=== PATIENT | female | born 1955 | race Caucasian/White ===

== ENCOUNTER → 2017-07-11 | Outpatient (CLI) | payer OTHER ==
[~2017-07-11] MED LIST: ADJUSTABLE COMM1 MIS; ALIG4CAP PO; AMBI5TAB PO; ASPI81TA23 PO; AZEL1SPR2 EACH NARE; CALC1TAB12 PO; CYCL10TA PO; DAILTAB8 PO; FLUT1SPR5 EACH NARE; HYDR-3366 PO; HYDR-3533 PO; HYDR-3580 PO; RAISED TOILET S1 MI1; RALO60 PO; ROSU5 PO; VITA250T3 PO; WALKER WHEELS/F1 MIS; ZINC220C3 PO; ZINC50TA2 PO
[2017-07-11 12:20] LABS: AUTOMATED NEUTROPHIL # 3.4 TH/MM3 (1.8-7.7); BASOPHIL # 0.1 TH/MM3 (0-0.2); BASOPHIL % 1.1 % (0.0-2.0); EOSINOPHIL # 0.2 TH/MM3 (0-0.4); EOSINOPHIL % 3.6 % (0.0-4.0); HEMOGLOBIN 13.6 GM/DL (11.6-15.3); LYMPH % 22.8 % (9.0-44.0); LYMPHOCYTE # 1.3 TH/MM3 (1.0-4.8); MEAN CELL VOLUME 91.5 FL (80.0-100.0); MEAN CORPUSCULAR HEMOGLOBIN 31.1 PG (27.0-34.0); MEAN CORPUSCULAR HGB CONC 34.1 % (32.0-36.0); MEAN PLATELET VOLUME 8.3 FL (7.0-11.0); MONO % 11.8 % (0.0-8.0); MONOCYTE # 0.7 TH/MM3 (0-0.9); NEUT % 60.7 % (16.0-70.0); PLATELET COUNT 263 TH/MM3 (150-450); RED BLOOD COUNT 4.38 MIL/MM3 (4.00-5.30); RED CELL DISTRIBUTION WIDTH 13.5 % (11.6-17.2); WHITE BLOOD COUNT 5.6 TH/MM3 (4.0-11.0)
[2017-07-11 12:27] LABS: INTERNATIONAL NORMALIZED RATIO 1.1 RATIO; PROTHROMBIN TIME - PATIENT 11.6 SEC (9.8-11.6)
[2017-07-11 12:44] LABS: BACTERIA, URINE OCC /hpf; BILIRUBIN, URINE NEG (NEG); BLOOD, URINE NEG (NEG); CALCIUM OXALATE CRYSTALS,URINE OCC /hpf; GLUCOSE,URINE NEG (NEG); KETONE, URINE NEG (NEG); MUCUS URINE FEW /lpf (OCC); NITRITE,URINE NEG (NEG); SQUAMOUS EPITHELIAL CELL URINE 1 /hpf (0-5); URINE COLOR LIGHT-YELLOW (YELLW/STRAW); URINE LEUKOCYTE ESTERASE NEG (NEG)
[2017-07-11 12:46] LABS: ALBUMIN 3.8 GM/DL (3.4-5.0); ALT (GPT) 24 U/L (10-53); AST (GOT) 20 U/L (15-37); BICARBONATE 26.8 MEQ/L (21.0-32.0); BLOOD UREA NITROGEN 17 MG/DL (7-18); CALCIUM 9.4 MG/DL (8.5-10.1); CHLORIDE 104 MEQ/L (98-107); CREATININE 0.55 MG/DL (0.50-1.00); GLOMERULAR FILTRATION RATE 112 ML/MIN (>89); GLUCOSE,FASTING 87 MG/DL (74-99); SODIUM (NA) 141 MEQ/L (136-145)
[2017-07-11 12:49] LABS: ALKALINE PHOSPHATASE 66 U/L (45-117); TOTAL BILIRUBIN ADULT 0.4 MG/DL (0.2-1.0); TOTAL PROTEIN 7.4 GM/DL (6.4-8.2)
--- NOTE | 2017-07-11 13:23 | RADRPT ---
EXAM DATE/TIME: 07/11/2017 12:38 [facility] COMPARISON: No previous studies available for comparison. INDICATIONS : Evaluate for pneumonia, pneumothorax or communicable disease. Pre-op for a lumbar fusion on 8. MEDICAL HISTORY : None. SURGICAL HISTORY : None. ENCOUNTER: Initial ACUITY: 1 day PAIN SCORE: 0/10 LOCATION: Bilateral chest FINDINGS: PA and lateral views of the chest demonstrate the lungs to be symmetrically aerated without evidence of mass, infiltrate or effusion. The cardiomediastinal contours are unremarkable. Osseous structure s are intact. There is asymmetry of the breast shadows with notable surgical clips in the left axilla . CONCLUSION: No acute disease. There is mild scarring and/or atelectasis. Jeffrey Barroso MD on July 11, 2017 at 13:20 Board Certified Radiologist. This report was verified electronically.
--- NOTE | 2017-07-12 16:04 | EKG ---
Date Performed: 07/11/2017 Time Performed: 11:50:12 PTAGE: 62 years EKG: Sinus rhythm Right bundle branch block Low QRS voltages in precordial leads Abnormal ECG PREVIOUS TRACING : 09/22/2009 09.38 Since previous tracing, no significant change noted DOCTOR: Vincenzo Mcintosh Interpretating Date/Time 07/12/2017 16:02:56
== END ==
LOC: CPRE 11:26
PROVIDERS: ATTEND Neurological Surgery
DX: Z01.810 Encounter for preprocedural cardiovascular examination (principal); Z01.811 Encounter for preprocedural respiratory examination; Z01.812 Encounter for preprocedural laboratory examination; Z01.818 Encounter for other preprocedural examination; M43.18 Spondylolisthesis, sacral and sacrococcygeal region; Z79.01 Long term (current) use of anticoagulants; R94.31 Abnormal electrocardiogram [ECG] [EKG]
CPT/HCPCS: 36415; 71046; 80053; 81001; 85025; 85610; 85730; 87640; 87641; 93005

== ENCOUNTER 2017-07-16 05:47 | Inpatient (IN) | payer OTHER ==
--- NOTE | 2017-07-15 15:35 | MH ---
cc: ALYSE PAULINO M.D., ROHIT K. M.D. BHALANI, KIRIT DATE OF ADMISSION 07/16/2017 ADMITTING DIAGNOSIS Lumbar degenerative disc disease with spondylolisthesis. HISTORY OF PRESENT ILLNESS This is a 62-year-old female who presented to us for evaluation of left leg pain which started March 2016 without any particular inciting event. She states that she has had low back pain extending into the left posterior buttocks and thigh and calf into the heel. She has had several epidural steroid injections with Dr. Haley which did not help. She states that she has noticed weakness in the left leg and at times is dragging her left foot. She states that at times the left leg feels like it could give out on her. She has had physical therapy in the past which did not help. She has used a TENS unit. She states currently her back pain is present all the time, rates it as 5/10. She also has had massage which helps some. She has numbness in the left foot on the medial aspect and also the left lateral calf and anterior thigh. She states that she wakes up in bed with numbness and burning in the left leg. She denies any right lower extremity symptoms. She states that her left leg has progressively gotten worse and is now at a point where it is almost unbearable and she is having difficulty making it through her work day secondary to the pain. PAST MEDICAL HISTORY 1. Hyperlipidemia. 2. Lumpectomy in 2000 and 2001. 3. Carpal tunnel surgery, partial in 2007 and full in 2009. 4. Sinus surgery in 2011. MEDICATIONS Current medications: 1. Crestor 10 mg daily. 2. Ambien 5 mg daily. 3. Calcium 1000 mg daily. 4. Zinc 500 mg daily. 5. Vitamin-C 1000 mg daily. 6. Hydrocodone 5/325 daily. ALLERGIES She has no known drug allergies. FAMILY HISTORY Her father is at age 70 of pneumonia. Her mother is alive at age 84 with Parkinson's disease. She has a sister who is alive at [id number]. SOCIAL HISTORY She is a speech pathologist. She is . She does not have children. She does not smoke; has not smoked in the past. She drinks alcohol 0-2 drinks daily. REVIEW OF SYSTEMS CONSTITUTIONAL: She denies any fever or chills. EARS, NOSE, AND THROAT: No pharyngitis, exudates or bloody drainage from her nose. CARDIOVASCULAR: She denies any chest pain or palpitations. RESPIRATORY: No cough or shortness of breath. GENITOURINARY: No dysuria or hematuria. MUSCULOSKELETAL: Positive for low back pain and left leg pain. SKIN: No rashes or pruritus. NEUROLOGIC: No difficulty with speech or memory. GASTROINTESTINAL: No nausea, vomiting, abdominal pain. PSYCHIATRIC: No anxiety or depression symptoms. ENDOCRINE: No polyuria or polydipsia. HEMATOLOGIC: No bruising or bleeding tendencies. DATA REVIEW MRI of the lumbar spine from November 21, 2016 reveals moderate disc degeneration at the L4-L5 level with a grade I spondylolisthesis and facet arthropathy with disc protrusion leading to severe bilateral foraminal stenosis. She also has degenerative disc disease and disc protrusions and facet arthropathy at the L3-L4 and L5-S1 levels with overall mild stenosis. IMPRESSION A 62-year-old female with progressively worsening chronic low back pain for the past several years, although severe for the past year or so with associated left L5 and S1 radiculopathy and dorsiflexion weakness. She has failed conservative treatment measures and has severe L4-L5 disc degeneration and disc height collapse along with a grade I spondylolisthesis and associated facet hypertrophy and disc protrusion with significant foraminal stenosis. She also has lesser degree of degenerative changes at the L3-L4 and L5-S1 levels. The patient states that she is currently miserable with her level of discomfort. She cannot continue to live with her current level of pain and she is requesting that we proceed and she was therefore scheduled accordingly. PLAN We have discussed the procedure with the patient which would entail an L4-L5 transforaminal interbody fusion with cage and pedicle screw fixation. We have discussed the procedure as well as the risk, benefit, alternatives and recovery time in great detail with the patient and her . We have discussed the risks involved with surgery include but not limited to bleeding, infection, muscle weakness, voice hoarseness, difficulty swallowing, heart attack, stroke, blood clots, non-fusion, scar tissue formation, among others. We have discussed that the success rate is usually around 85% in general but no guarantees were given to the patient or her . There is also a possibility of progression of adjacent segment disc disease in the future requiring further surgery and she understands this. The patient understands that the goal of surgery is to prevent further decline in the strength in her leg and she will require eventually physical therapy to help strengthen the weakness in her leg. The patient is in agreement with the treatment plan and she was therefore scheduled accordingly. Dictated by: Gilberto Peterson PA-C MD RUCHI Norris/POLLY /3:01 PM /3:15 PM
[~2017-07-16] VITALS: Ht 162.6 cm; Wt 75.9 kg
[~2017-07-16 05:47] MED LIST changes: -ADJUSTABLE COMM1 MIS; -CYCL10TA PO; -HYDR-3366 PO; -HYDR-3533 PO; -HYDR-3580 PO; -RAISED TOILET S1 MI1; -WALKER WHEELS/F1 MIS; -ZINC220C3 PO
[2017-07-16] MEDS ORDERED: METOPROLOL TARTRATE 25 MG TAB PO PRN (06:15)
[2017-07-16] MEDS ORDERED: CHLORHEXIDINE GLUCONATE 2 % 1 PACK (2 CLOTHS) TOPICAL PRN (06:15)
[2017-07-16] MEDS ORDERED: VANCOMYCIN 1000 MG/NS 250 ML IV SCH ×2 (06:15)
[2017-07-16] MEDS ORDERED: SODIUM CHLOR 0.9% 1000 ML INJ 1,000 ML IV SCH (06:15)
[2017-07-16] MEDS ORDERED: SODIUM CHLORID 0.9% 500 ML IV PRN (06:15)
[2017-07-16] MEDS ORDERED: POVIDONE IODINE 5% (ANTISEPSIS KIT) 4 APPLICATIONS EACH NARE PRN (06:15)
[2017-07-16] MEDS ORDERED: LACTATED RINGER'S 1000 ML IV PRN (06:15)
[2017-07-16] MEDS ORDERED: HYDR-3580 PO (07:02)
[2017-07-16] MEDS ORDERED: VANCOMYCIN HCL 1000 MG VIAL ONE ×2 (08:36→08:37)
[2017-07-16] MEDS ORDERED: GELFOAM SIZE 100 ONE ×2 (08:36→10:47)
[2017-07-16] MEDS ORDERED: THROMBIN (TOPICAL) 5,000 UNIT VIAL ONE ×2 (08:36→10:46)
[2017-07-16] MEDS ORDERED: BUPIVACAINE/EPINEPHRINE 0.5% 50 ML VIAL ONE (08:36)
[2017-07-16] MEDS ORDERED: ACETAMINOPHEN 1000 MG/100 ML 100 ML IV ONE (09:29)
[2017-07-16] MEDS ORDERED: SUGAMMADEX SODIUM 200 MG/2 ML VIAL IV PUSH ONE (09:29)
[2017-07-16] MEDS ORDERED: HYDROmorphone HCL PF 2 MG/ML VIAL ONE (09:29)
[2017-07-16] MEDS ORDERED: NALOXONE HCL 0.4 MG/ML AMP ONE (09:30)
[2017-07-16] MEDS ORDERED: DO NOT ADM ANY ANTICOAGULANT DRUGS PRN (12:09)
[2017-07-16] MEDS ORDERED: *ONDANSETRON 4 MG VIAL PERIprocedural Use ONLY ONE (12:22)
[2017-07-16] MEDS ORDERED: MIDAZOLAM HCL 2 MG/2 ML VIAL ONE (12:25)
[2017-07-16] MEDS ORDERED: MENTHOL LOZENGE BUCCAL PRN (12:45)
[2017-07-16] MEDS ORDERED: SENNOSIDES 8.6 MG TAB PO PRN (12:45)
[2017-07-16] MEDS ORDERED: NALOXONE HCL 0.4 MG/ML AMP IV PUSH PRN (12:45)
[2017-07-16] MEDS ORDERED: SODIUM CHLORIDE 0.9% FLUSH 10 ML FLUSH IV FLUSH PRN (12:45)
[2017-07-16] MEDS ORDERED: ONDANSETRON HCL 4 MG/2 ML VIAL IV PUSH PRN (12:45)
[2017-07-16] MEDS ORDERED: ALUMINUM/MAGNESIUM/SIMETH 30 ML CUP PO PRN (12:45)
[2017-07-16] MEDS ORDERED: cloNIDine HCL 0.1 MG TAB PO PRN (12:45)
[2017-07-16] MEDS ORDERED: CYCLOBENZAPRINE HCL 10 MG TAB PO PRN (12:45)
[2017-07-16] MEDS ORDERED: MORPHINE SULFATE 30 MG/30 ML PCA IV SCH (12:45)
[2017-07-16] MEDS ORDERED: CALCIUM GLUCONATE INJ 1 GM in SODIUM CHLORIDE 0.9% INJ 100 ML IV PRN (12:45)
[2017-07-16] MEDS ORDERED: LACTULOSE SYRUP 20 GM/30 ML CUP PO PRN (12:45)
[2017-07-16] MEDS ORDERED: ACETAMINOPHEN 325 MG TAB PO PRN (12:45)
[2017-07-16] MEDS ORDERED: POTASSIUM CHLOR 20 MEQ PREMIX 100 ML IV PRN (12:45)
[2017-07-16] MEDS ORDERED: RESP: ALBUTEROL 2.5 MG/3 ML NEB (PRN) NEB (12:45)
[2017-07-16] MEDS ORDERED: MAGNESIUM SULFATE INJ 2 GM in SODIUM CHLORIDE 0.9% INJ 100 ML IV PRN (12:45)
[2017-07-16] MEDS ORDERED: BISACODYL 10 MG SUPP RECTAL PRN (12:45)
[2017-07-16] MEDS ORDERED: MAGNESIUM HYDROXIDE SUSP 30 ML CUP PO PRN (12:45)
[2017-07-16] MEDS ORDERED: PROMETHAZINE INJ 25 MG/ML VIAL IM PRN (12:45)
--- NOTE | 2017-07-16 12:48 | PD.OP ---
MD Gee Connelly MD Operative Report Date of Surgery: Jul 16, 2017 Preoperative Diagnosis: Intractable low back pain with radiculopathy; lumbar L4-5 spinal/foraminal stenosis with pars defect and degenerative disc disease with grade 1 spondylolisthesis along with facet and ligamentum flavum hypertrophy Postoperative Diagnosis: Same Procedure: Lumbar transforaminal L4-5 decompression with interbody fusion; L4-5 pedicle screw fixation; L4-5 interbody cage placement; microsurgical technique Anesthesia: Gen. endotracheal by Fabiano mustafa Surgeon: Zeb Ochoa M.D. [employer] [facility] Gunsmith(s): Elsa Ramon Operation and Findings: Following initiation of general endotracheal anesthesia, the patient had a Plaza catheter placed along with sequential compression devices. A gram of vancomycin was administered intravenously and she was turned in a prone position on a Garrett frame, on a Sami table, and all pressure points adequately padded. The lumbosacral region was then prepped with Chloraprep and sterilely draped with [place]oban along the usual sterile draping. A left paraspinal skin incision was then made extending from the L4-L5 level after infiltrating the skin with 0.5% Marcaine with epinephrine solution extending down through the fascia. The muscle fibers were split using avascular fatty plane and detached from the underlying facets, transverse process and lateral portion of lamina on the left side and a self-retaining retractor used for exposure. Intraoperative fluoroscopy was also used for level of confirmation along with microscope magnification for further dissection. There was significant facet and ligamentum flavum hypertrophy noted at the L4-5 levels along with the spondylolisthesis and pars defect. Left L4-5 facet was resected with a drill bit along with the lamina and there was severe foraminal and lateral recess stenosis from hypertrophied ligamentum flavum and facet which were decompressed. There was significant disc height collapse along with disc protrusion also leading to the foraminal stenosis. Epidural hemostasis was achieved with bipolar cautery and Gelfoam with thrombin. Subsequently entered into the disc space at the L4-5 level with a #15 blade and sofia were used for discectomy. I then placed PEEK cage packed with local autograft bone and more local autograft bone was packed adjacent to the cage in interspace for added interbody fusion. With placement of the cage, I was able to distract the interspace and opened up the foramen further bilaterally. A left lateral durotomy at the axilla of the thecal sac and nerve root was noted and this was repaired with a 5-0 Prolene in a watertight fashion and reinforced with compressed Gelfoam and DuraSeal along with an epidural fat pad. Subsequently in order to facilitate the fusion and provide stabilization, pedicle screw fixation was undertaken using [place] spine screws on entry point at the left L4 -5 levels at the junction of the transverse process and facet. Subsequently using AP and lateral fluoroscopy tap and screw placement. The screws were then connected with a bob and locked in place with caps. The construct appeared very secure at this point. The area was then copiously irrigated with Vancomycin solution and powder. The retractors were removed and the bipolar cautery used for hemostasis. The muscle fascia was then approximated using 2-0 Vicryl interrupted stitches and then 3-0 Vicryl subcuticular stitches also placed in interrupted fashion. The final skin closure was completed with Mastisol and Steri-Strips. A sterile dressing was then applied. The patient then turned in supine position, extubated and taken to recovery room. There were no intraoperative complications. All sponge and needle counts were correct at the end of procedure. Estimated blood loss about 400 ml. Zeb Ochoa MD Jul 16, 2017 12:48
[2017-07-16] MEDS ORDERED: *morphine SULFATE 4 MG/ML PERIprocedure ONLY ONE ×2 (12:50→13:08)
[2017-07-16] MEDS: SODIUM CHLOR 0.9% 1000 ML INJ 1,000 ML IV SCH ×2 (13:14→21:46)
[2017-07-16] MEDS: ACETAMINOPHEN/HYDROcodone 325 MG/10 MG TAB PO PRN ×2 (13:15→18:05)
[2017-07-16 15:00] LABS: AUTOMATED NEUTROPHIL # 11.2 TH/MM3 (1.8-7.7); BASOPHIL % 0.2 % (0.0-2.0); EOSINOPHIL % 0.1 % (0.0-4.0); HEMOGLOBIN 11.7 GM/DL (11.6-15.3); LYMPH % 6.5 % (9.0-44.0); LYMPHOCYTE # 0.8 TH/MM3 (1.0-4.8); MEAN CELL VOLUME 92.7 FL (80.0-100.0); MEAN CORPUSCULAR HGB CONC 33.4 % (32.0-36.0); MEAN PLATELET VOLUME 7.9 FL (7.0-11.0); MONO % 1.8 % (0.0-8.0); MONOCYTE # 0.2 TH/MM3 (0-0.9); NEUT % 91.4 % (16.0-70.0); PLATELET COUNT 205 TH/MM3 (150-450); RED BLOOD COUNT 3.78 MIL/MM3 (4.00-5.30); RED CELL DISTRIBUTION WIDTH 13.6 % (11.6-17.2); WHITE BLOOD COUNT 12.3 TH/MM3 (4.0-11.0)
--- NOTE | 2017-07-16 15:02 | RADRPT ---
EXAM DATE/TIME: 07/16/2017 08:50 [facility] COMPARISON: FLUOROSCOPY PORTABLE UP TO 1HR, July 16, 2017, 0:00. INDICATIONS : Fusion L4,L5 with screw and bob placement. MEDICAL HISTORY : None. SURGICAL HISTORY : None. ENCOUNTER: Initial ACUITY: 1 day PAIN SCORE: Non-responsive. LOCATION: Lumbar spine. FINDINGS: The examination demonstrates fusion hardware across L4/5 level. The hardware appears well-positioned. There is spacing material between the L4 and L5 vertebral bodies. There is minimal anterolisthesis o f L4 relative to L5. CONCLUSION: 1. Surgical hardware appears in good position. There transpedicular screws at L4-L5. Bayron Yin MD on July 16, 2017 at 14:59 Board Certified Radiologist. This report was verified electronically.
[2017-07-16 15:15] LABS: CALCIUM 8.3 MG/DL (8.5-10.1); CREATININE 0.6 MG/DL (0.50-1.00)
[2017-07-16 15:38] LABS: BICARBONATE 24.9 MEQ/L (21.0-32.0)
[2017-07-16 18:56] LABS: CALCIUM 8.2 MG/DL (8.5-10.1)
[2017-07-16 19:02] LABS: CALCIUM-PROTEIN CORRECTED 8.7 MG/DL (8.5-10.1); TOTAL PROTEIN 6.3 GM/DL (6.4-8.2)
[2017-07-16] MEDS: ZOLPIDEM TARTRATE 5 MG TAB PO PRN ×2 (19:36→21:50)
[2017-07-16 20:25] VITALS: O2SAT 95
[2017-07-16 20:45] VITALS: BP 114/55; PULSE 87; RESP 17; TEMP 98.9; O2SAT 95
[2017-07-16] MEDS: DOCUSATE SODIUM 50 MG/SENNA 8.6 MG TAB PO SCH (21:00)
[2017-07-16] MEDS ORDERED: AZELASTINE NASAL SCH (21:00)
[2017-07-16] MEDS: CALCIUM/VITAMIN D 250 MG/125 U TAB PO SCH (21:44)
[2017-07-16] MEDS: PCA - TOTAL MG MORPHINE DELIVERED PER SHIFT SCH (21:47)
[2017-07-16 23:20] VITALS: BP 101/55; PULSE 94; RESP 16; TEMP 97; O2SAT 95
[2017-07-17] VITALS (7 sets, daily range): BP systolic 91–102; BP diastolic 46–54; PULSE 87–98; RESP 16–18; TEMP 97.4–100.2; O2SAT 92–97
[2017-07-17] MEDS: ACETAMINOPHEN/HYDROcodone 325 MG/10 MG TAB PO PRN ×4 (00:05→20:09)
[2017-07-17] MEDS: diphenhydrAMINE HCL 50 MG/ML VIAL IV PUSH PRN (00:14)
[2017-07-17] MEDS: SODIUM CHLORIDE 0.9% FLUSH 10 ML FLUSH IV FLUSH SCH ×3 (04:05→20:08)
[2017-07-17] MEDS: PCA - TOTAL MG MORPHINE DELIVERED PER SHIFT SCH (06:00)
[2017-07-17] MEDS: ATORVASTATIN 10 MG TAB PO SCH ×2 (08:34→13:15)
[2017-07-17] MEDS: CALCIUM/VITAMIN D 250 MG/125 U TAB PO SCH ×3 (08:34→20:09)
[2017-07-17] MEDS: PANTOPRAZOLE SOD 40 MG DELAYED RELEASE TAB PO SCH (08:34)
[2017-07-17] MEDS: DOCUSATE SODIUM 50 MG/SENNA 8.6 MG TAB PO SCH ×3 (08:35→20:08)
[2017-07-17] MEDS: MULTIVITAMIN TAB PO SCH ×2 (08:35→13:15)
[2017-07-17] MEDS: ASPIRIN EC 81 MG TABEC PO SCH ×2 (08:35→09:00)
[2017-07-17] MEDS: RALOXIFENE HCL 60 MG TAB PO SCH ×2 (08:35→13:14)
[2017-07-17] MEDS ORDERED: ZINC GLUCONATE 50 MG PO SCH (09:00)
[2017-07-17] MEDS: FLUTICASONE PROPIONATE 50 MCG/ACT 16 GM NASAL SPRAY NASAL SCH (09:00)
--- NOTE | 2017-07-17 09:39 | HHI.NSPN ---
(Gilberto Peterson) History Chief Complaint: headache, nausea (Gilberto Peterson) Interval History Pt s/p L4/L5 TLIF on 07/16/16. She states she was not using her Morphine LENS FABRICATING MACHINE TENDER much until last night and she developed a headache last night. She states she also has nausea and is not feeling well. She has been on bedrest per orders for a dural leak. She states the radicular pain seems to be resolved this morning. She has incisional pain that was controlled with [place] initially. (Gilberto Peterson) Review of Systems General: Negative for: fever, chills, insomnia Respiratory: Negative for: shortness of breath, cough, sputum Cardiovascular: Negative for: chest pain Gastrointestinal: Positive for: nausea, Negative for: vomitting, diarrhea, constipation (Gilberto Peterson) Exam Results Vital Signs Date Time Temp Pulse Resp B/P (MAP) Pulse Ox O2 Delivery O2 Flow Rate FiO2 07/17/17 06:00 17 07/17/17 04:00 98.1 87 102/52 (69) 97 07/16/17 20:25 21 07/16/17 18:00 Room Air Intake and Output 07/17/17 07/17/17 07/18/17 08:00 16:00 00:00 Intake Total 240 ml Output Total 750 ml Balance -510 ml (Gilberto Peterson) Physical Examination Resp: CTA bilaterally Heart: NSR no murmurs Abd: Soft positive bs Skin: No cyanosis or erythema. Pt log rolled. Incision clean and dry without any signs of infection or CSF drainage. Muscle: Moves LEs with good strength. Neuro: Pt awake an alert. Follows commands well. Speech clear and appropriate. (Gilberto Peterson) Lab, Micro, Other Results Last Impressions Lumbar Spine X-Ray 07/16/17 0000 Signed Impressions: Service Date/Time: Sunday, July 16, 2017 08:50 - CONCLUSION: 1. Surgical hardware appears in good position. There transpedicular screws at L4-L5. Bayron Yin MD Laboratory Tests Test 07/16/17 14:33 White Blood Count 12.3 TH/MM3 Red Blood Count 3.78 MIL/MM3 Hemoglobin 11.7 GM/DL Hematocrit 35.0 % Mean Corpuscular Volume 92.7 FL Mean Corpuscular Hemoglobin 31.0 PG Mean Corpuscular Hemoglobin Concent 33.4 % Red Cell Distribution Width 13.6 % Platelet Count 205 TH/MM3 Mean Platelet Volume 7.9 FL Neutrophils (%) (Auto) 91.4 % Lymphocytes (%) (Auto) 6.5 % Monocytes (%) (Auto) 1.8 % Eosinophils (%) (Auto) 0.1 % Basophils (%) (Auto) 0.2 % Neutrophils # (Auto) 11.2 TH/MM3 Lymphocytes # (Auto) 0.8 TH/MM3 Monocytes # (Auto) 0.2 TH/MM3 Eosinophils # (Auto) 0.0 TH/MM3 Basophils # (Auto) 0.0 TH/MM3 CBC Comment DIFF FINAL Differential Comment Blood Urea Nitrogen 13 MG/DL Creatinine 0.60 MG/DL Random Glucose 98 MG/DL Calcium Level 8.3 MG/DL Magnesium Level 2.0 MG/DL Sodium Level 140 MEQ/L Potassium Level 4.1 MEQ/L Chloride Level 108 MEQ/L Carbon Dioxide Level 24.9 MEQ/L Anion Gap 7 MEQ/L Estimat Glomerular Filtration Rate 102 ML/MIN Protein Corrected Calcium 8.7 MG/DL Total Protein 6.3 GM/DL (Gilberto Peterson) Medical Decision Making Impression and Plan A: Pt s/p L4/L5 TLIF with cage and pedicle screw fixation. She developed headache and nausea last night when she started using the LENS FABRICATING MACHINE TENDER P: Recommended we D/C LENS FABRICATING MACHINE TENDER and if pain not controlled prn IV morphine but seems to be contributing to her symptoms. Pt can log roll in bed to change position. Once she is feeling better we can get up into a chair. Discussed with RN using the Zofran for her nausea. (Gilberto Peterson) Attending Statement The exam, history, and the medical decision-making described in the above note were completed with the assistance of the mid-level provider. I reviewed and agree with the findings presented. I attest that I had a [id number] encounter with the patient on the same day, and personally performed and documented my assessment and findings in the medical record. (Zeb Ochoa MD) Gilberto Peterson Jul 17, 2017 09:39 Zeb Ochoa MD Jul 17, 2017 17:02
[2017-07-17] MEDS ORDERED: MORPHINE SULFATE 4 MG/ML INJ IV PUSH PRN (09:45)
[2017-07-17] MEDS ORDERED: MORPHINE SULFATE 2 MG/ML INJ IV PUSH PRN (11:45)
[2017-07-17] MEDS: SODIUM CHLOR 0.9% 1000 ML INJ 1,000 ML IV SCH ×2 (17:30→22:09)
[2017-07-17] MEDS: ZOLPIDEM TARTRATE 5 MG TAB PO PRN (20:08)
[2017-07-18 00:10] VITALS: BP 97/49; PULSE 102; RESP 18; TEMP 98.4; O2SAT 92
[2017-07-18] MEDS: SODIUM CHLOR 0.9% 1000 ML INJ 1,000 ML IV SCH ×4 (04:58→23:46)
[2017-07-18 08:00] VITALS: BP 111/58; PULSE 97; RESP 16; TEMP 99.9; O2SAT 94
[2017-07-18] MEDS: SODIUM CHLORIDE 0.9% FLUSH 10 ML FLUSH IV FLUSH SCH ×2 (08:20→20:55)
[2017-07-18] MEDS: ATORVASTATIN 10 MG TAB PO SCH (08:21)
[2017-07-18] MEDS: CALCIUM/VITAMIN D 250 MG/125 U TAB PO SCH ×2 (08:21→20:55)
[2017-07-18] MEDS: RALOXIFENE HCL 60 MG TAB PO SCH (08:21)
[2017-07-18] MEDS: ASPIRIN EC 81 MG TABEC PO SCH (08:22)
[2017-07-18] MEDS: PANTOPRAZOLE SOD 40 MG DELAYED RELEASE TAB PO SCH (08:22)
[2017-07-18] MEDS: ACETAMINOPHEN/HYDROcodone 325 MG/10 MG TAB PO PRN ×4 (08:23→22:24)
[2017-07-18] MEDS: DOCUSATE SODIUM 50 MG/SENNA 8.6 MG TAB PO SCH ×2 (08:23→20:55)
[2017-07-18] MEDS: MULTIVITAMIN TAB PO SCH (08:24)
[2017-07-18] MEDS: FLUTICASONE PROPIONATE 50 MCG/ACT 16 GM NASAL SPRAY NASAL SCH (09:00)
[2017-07-18] MEDS ORDERED: CYCL10TA PO ×2 (09:33→13:27)
--- NOTE | 2017-07-18 09:36 | HHI.NSPN ---
(Gilberto Peterson) History Chief Complaint: headache, nausea (Gilberto Peterson) Interval History Pt s/p L4/L5 TLIF on 07/16/16. She states she was not using her Morphine ROLLER TURNER much until last night and she developed a headache last night. She states she also has nausea and is not feeling well. She has been on bedrest per orders for a dural leak. She states the radicular pain seems to be resolved this morning. She has incisional pain that was controlled with [place] initially. 07/18/17: Pt awake and alert. States feeling better today. No headache or nausea. No radiculopathy or paresthesias in LEs. Pt has Plaza in place. (Gilberto Peterson) Review of Systems General: Negative for: fever, chills, insomnia Respiratory: Negative for: shortness of breath, cough, sputum Cardiovascular: Negative for: chest pain Gastrointestinal: Negative for: nausea, vomitting, diarrhea, constipation ( Gilberto Peterson) Exam Results Vital Signs Date Time Temp Pulse Resp B/P (MAP) Pulse Ox O2 Delivery O2 Flow Rate FiO2 07/18/17 00:10 98.4 102 18 97/49 (65) 92 07/17/17 23:46 Room Air 07/17/17 21:04 21 Intake and Output 07/18/17 07/18/17 07/19/17 08:00 16:00 00:00 Intake Total 240 ml Output Total 900 ml Balance -660 ml (Gilberto Peterson) Physical Examination Resp: CTA bilaterally Heart: NSR no murmurs Abd: Soft positive bs Skin: No cyanosis or erythema. Bandaged changed by RN this morning. Pt currently sitting up in chair with brace on. Muscle: Moves LEs with good strength. Sitting up in chair with brace on. Neuro: Pt awake an alert. Follows commands well. Speech clear and appropriate. Sensation in LEs intact. (Gilberto Peterson) Lab, Micro, Other Results Last Impressions Lumbar Spine X-Ray 07/16/17 0000 Signed Impressions: Service Date/Time: Sunday, July 16, 2017 08:50 - CONCLUSION: 1. Surgical hardware appears in good position. There transpedicular screws at L4-L5. Bayron Yin MD 07/18/17 07/18/17 07/19/17 15:00 23:00 07:00 Intake Total 240 ml Output Total 900 ml Balance -660 ml Intake Oral 240 ml Output Urine Total 900 ml # Bowel Movements 0 (Gilberto Peterson) Medical Decision Making Impression and Plan A: Pt s/p L4/L5 TLIF with cage and pedicle screw fixation. Headache and nausea resolved after Morphine ROLLER TURNER discontinued. P: D/C Plaza Continue with PT continue with pain control Anticipate d/c tomorrow am. (Gilberto Peterson) Attending Statement The exam, history, and the medical decision-making described in the above note were completed with the assistance of the mid-level provider. I reviewed and agree with the findings presented. I attest that I had a [id number] encounter with the patient on the same day, and personally performed and documented my assessment and findings in the medical record. (Zeb Ochoa MD) Gilberto Petreson Jul 18, 2017 09:36 Zeb Ochoa MD Jul 18, 2017 16:32
[2017-07-18] MEDS ORDERED: WALKER WHEELS/F1 MIS (09:42)
[2017-07-18 12:00] VITALS: BP 119/61; PULSE 85; RESP 16; TEMP 97.7; O2SAT 97
[2017-07-18] MEDS ORDERED: HYDR-3366 PO (13:27)
--- NOTE | 2017-07-18 13:54 | HHI.FF ---
Face to Face Verification Diagnosis: (1) DDD (degenerative disc disease), lumbar Physical Therapy Order: Evaluate and Treat, Improve ambulation, Strength and gait training Occupational Therapy Order: Evaluate and Treat, Improve ADL Home Health Nursing Order: Wound care and dressing changes Nursing assessment with vital signs I have seen patient Rossy Hale on 07/18/17. My clinical findings support the need for the requested home health care services because: Deconditioned w/ increased weakness High risk of falls I certify that my clinical findings support that this patient is homebound because: Post-op weakness Unsteady gait/balance Unable to use public transportation Gilberto Peterson Jul 18, 2017 13:54
[2017-07-18 16:00] VITALS: BP 111/60; PULSE 84; RESP 16; TEMP 98.2; O2SAT 95
[2017-07-18 20:50] VITALS: PULSE 91; TEMP 98.7
[2017-07-18] MEDS: diphenhydrAMINE HCL 50 MG/ML VIAL IV PUSH PRN (20:55)
[2017-07-18] MEDS: ZOLPIDEM TARTRATE 5 MG TAB PO PRN (22:24)
[2017-07-19 08:00] VITALS: BP 116/63; PULSE 96; RESP 18; TEMP 99.3; O2SAT 92
[2017-07-19] MEDS: SODIUM CHLOR 0.9% 1000 ML INJ 1,000 ML IV SCH (08:04)
[2017-07-19] MEDS: ASPIRIN EC 81 MG TABEC PO SCH (08:20)
[2017-07-19] MEDS: ACETAMINOPHEN/HYDROcodone 325 MG/10 MG TAB PO PRN (08:20)
[2017-07-19] MEDS: RALOXIFENE HCL 60 MG TAB PO SCH (08:21)
[2017-07-19] MEDS: CALCIUM/VITAMIN D 250 MG/125 U TAB PO SCH (08:21)
[2017-07-19] MEDS: ATORVASTATIN 10 MG TAB PO SCH (08:21)
[2017-07-19] MEDS: MULTIVITAMIN TAB PO SCH (08:21)
[2017-07-19] MEDS: DOCUSATE SODIUM 50 MG/SENNA 8.6 MG TAB PO SCH (08:21)
[2017-07-19] MEDS: PANTOPRAZOLE SOD 40 MG DELAYED RELEASE TAB PO SCH (08:21)
[2017-07-19] MEDS: SODIUM CHLORIDE 0.9% FLUSH 10 ML FLUSH IV FLUSH SCH (08:29)
[2017-07-19] MEDS: FLUTICASONE PROPIONATE 50 MCG/ACT 16 GM NASAL SPRAY NASAL SCH (08:31)
--- NOTE | 2017-07-19 09:26 | HHI.NSPN ---
History Chief Complaint: Incisional discomfort. Interval History Pt s/p L4/L5 TLIF on 07/16/16. She states she was not using her Morphine TILT WALL SUPERVISOR much until last night and she developed a headache last night. She states she also has nausea and is not feeling well. She has been on bedrest per orders for a dural leak. She states the radicular pain seems to be resolved this morning. She has incisional pain that was controlled with [place] initially. 07/18/17: Pt awake and alert. States feeling better today. No headache or nausea. No radiculopathy or paresthesias in LEs. Pt has Plaza in place. 07/19/17: Pt awake and alert. Sitting up in chair. Complains of incisional soreness. No radiculopathy or paresthesias in LEs. Review of Systems General: Negative for: fever, chills, insomnia Respiratory: Negative for: shortness of breath, cough, sputum Cardiovascular: Negative for: chest pain Gastrointestinal: Negative for: nausea, vomitting, diarrhea, constipation Exam Results Vital Signs Date Time Temp Pulse Resp B/P (MAP) Pulse Ox O2 Delivery O2 Flow Rate FiO2 07/19/17 08:00 99.3 96 18 116/63 (80) 92 07/19/17 08:00 Room Air 07/18/17 22:37 21 Intake and Output 07/19/17 07/19/17 07/20/17 08:00 16:00 00:00 Output Total 650 ml Balance -650 ml Physical Examination Resp: CTA bilaterally Heart: NSR no murmurs Abd: Soft positive bs Skin: No cyanosis or erythema. Bandaged changed by RN this morning. Pt currently sitting up in chair with brace on. Muscle: Moves LEs with good strength. Sitting up in chair with brace on. Neuro: Pt awake an alert. Follows commands well. Speech clear and appropriate. Sensation in LEs intact. Lab, Micro, Other Results Last Impressions Lumbar Spine X-Ray 07/16/17 0000 Signed Impressions: Service Date/Time: Sunday, July 16, 2017 08:50 - CONCLUSION: 1. Surgical hardware appears in good position. There transpedicular screws at L4-L5. Bayron Yin MD Medical Decision Making Impression and Plan A: Pt s/p L4/L5 TLIF with cage and pedicle screw fixation. Headache and nausea resolved after Morphine TILT WALL SUPERVISOR discontinued. P: D/C Home today. Continue with PT continue with pain control Gilberto Peterson Jul 19, 2017 9:26 am
[2017-07-19] MEDS ORDERED: RAISED TOILET S1 MI1 (09:27)
[2017-07-19] MEDS ORDERED: ADJUSTABLE COMM1 MIS (10:39)
== END 2017-07-19 14:16 | disposition home or self-care (01) | DRG 460 ==
LOC: HSDI 05:47 → N06A 18:28
PROVIDERS: ADMIT Neurological Surgery; ATTEND Neurological Surgery
PROC: 0ST20ZZ Resection of Lumbar Vertebral Disc, Open Approach (ICD-10-PCS; 2017-07-16)
PROC: 0SG00AJ Fusion of Lumbar Vertebral Joint with Interbody Fusion Device, Posterior Approach, Anterior Column, Open Approach (ICD-10-PCS; principal; 2017-07-16 08:32)
DX: M51.16 Intervertebral disc disorders with radiculopathy, lumbar region (principal); E78.5 Hyperlipidemia, unspecified; M43.16 Spondylolisthesis, lumbar region; G89.29 Other chronic pain; M48.061 Spinal stenosis, lumbar region without neurogenic claudication; R11.0 Nausea; R51 Headache; R53.1 Weakness
CPT/HCPCS: 72100; 76000; 80048; 83735; 84155; 85025; 86850; 86900; 86901; 94150; C1713; J0131; J0690; J1170; J1200; J2250; J2270; J2310; J2405; J3010; J3370; J7030; J7050; J7120